=== PATIENT | male | born 1980 | race Caucasian/White ===

== ENCOUNTER 2017-02-02 19:34 | Emergency (ER) | payer OTHER ==
[2017-02-02 19:41] VITALS: BP 126/77
[2017-02-02 20:04] LABS: RAPID STREP SCREEN REAGENT QC YELLOW (YELLOW)
[2017-02-02] MEDS ORDERED: DEXAMETHASONE 10 MG/ML VIAL PO STA (20:20)
[2017-02-02] MEDS ORDERED: DEXAMETHASONE 10 MG/ML VIAL ONE (20:21)
[2017-02-02] MEDS ORDERED: CHERRY SYRUP 10 ML UDC PO ONE (20:22)
--- NOTE | 2017-02-02 20:23 | ED Physician Documentation ---
PD HPI URI - Stated complaint Stated Complaint: SORE THROAT/CHILD - Chief complaint Chief Complaint: Neuro - History obtained from History obtained from: Patient - History of Present Illness Timing - onset: Yesterday Timing duration: Days (2) Timing details: Gradual onset Pain level max: 6 Pain level now: 6 Associated symptoms: Fever (subjective), Chills, Sore throat, Dry cough (mild). No: Nasal congestion, Rhinorrhea, NVD Contributing factors: Sick contact (friend with strep throat 2 weeks ago) Improves by: Rest Worsened by: Other (swallowing) Similar symptoms before: Diagnosis (strep) Recently seen: Not recently seen Review of Systems Ears: denies: Ear pain GI: denies: Vomiting Skin: denies: Rash Musculoskeletal: denies: Neck pain, Back pain PD PAST MEDICAL HISTORY - Past Medical History Past Medical History: Yes Other Past Medical History: TORN ROTATOR CUFFS - Past Surgical History Past Surgical History: Yes Ortho: Other - Present Medications Home Medications: Ambulatory Orders Medication Instructions Recorded Confirmed Ibuprofen [Motrin] 800 mg PO Q8H PRN #30 tablet 02/02/17 - Allergies Allergies/Adverse Reactions: Allergies Allergy/AdvReac Type Severity Reaction Status Date / Time No Known Drug Allergies Allergy Verified 02/02/17 19:41 - Social History Does the pt smoke?: No Smoking Status: Never smoker Does the pt drink ETOH?: No Does the pt have substance abuse?: No - Immunizations Immunizations are current?: Yes - POLST Patient has POLST: No PD ED PE NORMAL - Vitals Vital signs reviewed: Yes - General General: Alert and oriented X 3, No acute distress, Well developed/nourished - HEENT HEENT: Ears normal, Moist mucous membranes, Other (Mild posterior oropharyngeal erythema without tonsillar exudates) - Neck Neck: Supple, no meningeal sign, No adenopathy - Cardiac Cardiac: RRR - Respiratory Respiratory: No respiratory distress, Clear bilaterally - Derm Derm: Warm and dry - Neuro Neuro: Alert and oriented X 3 - Psych Psych: Normal mood, Normal affect Results - Vitals Vitals: Oxygen O2 Source Room air - Labs Labs: Microbiology 02/02/17 19:46 Group A Strep Throat Culture - Preliminary Throat Laboratory Tests 02/02/17 19:46 Group A Strep Rapid Negative PD MEDICAL DECISION MAKING - ED course Complexity details: considered differential, d/w patient ED course: Patient is a 36-year-old male who presents to the emergency department with pharyngitis. Strep test is negative. Will hold antibiotics pending culture. Will utilize dexamethasone for the swelling. He is very well-appearing, nontoxic. No peritonsillar abscess. Normal phonation. No trismus. Patient counseled regarding signs and symptoms for which I believe and urgent re- evaluation would be necessary. Patient with good understanding of and agreement to plan and is comfortable going home at this time This document was made in part using voice recognition software. While efforts are made to proofread this document, sound alike and grammatical errors may occur. Departure - Departure Disposition: Home, Self Care Clinical Impression: Pharyngitis Qualifiers: Pharyngitis/tonsillitis etiology: unspecified etiology Qualified Code(s): J02.9 - Acute pharyngitis, unspecified Condition: Good Instructions: ED Pharyngitis Viral Follow-Up: your,doctor in 1 week if not better [Other] Prescriptions: Ibuprofen [Motrin] 800 mg PO Q8H PRN #30 tablet PRN Reason: PAIN &/OR FEVER Comments: Return if you worsen. This should improve over the next few days. If your culture is positive, we will call you. Discharge Date/Time: 02/02/17 20:26
== END 2017-02-02 20:26 | disposition home or self-care (01) ==
LOC: ED 19:34
DX: J02.9 Acute pharyngitis, unspecified (principal)
CPT/HCPCS: 87070; 87430; 99283; A9270

== ENCOUNTER 2017-09-13 15:47 | Emergency (ER) | payer OTHER ==
[2017-09-13 16:06] VITALS: BP 127/76
== END 2017-09-13 17:25 | disposition left against medical advice (07) ==
LOC: ED 15:47
DX: Z53.21 Procedure and treatment not carried out due to patient leaving prior to being seen by health care provider (principal)

== ENCOUNTER 2017-09-15 12:16 | Emergency (ER) | payer OTHER ==
[2017-09-15 12:26] VITALS: BP 140/85
[2017-09-15 12:48] LABS: BASOPHILS % (AUTO) 0.4 %; EOSINOPHILS # (AUTO) 0.1 10^3/uL (0.0-0.7); EOSINOPHILS % (AUTO) 1.2 %; HGB - HEMOGLOBIN 16.6 g/dL (14.0-18.0); LYMPHOCYTES # (AUTO) 2.3 10^3/uL (1.5-3.5); LYMPHOCYTES % (AUTO) 42.2 %; MEAN CORPUSCULAR HEMOGLOBIN 30.3 pg (27.0-31.0); MEAN CORPUSCULAR HGB CONC 34.9 g/dL (32.0-36.0); MEAN CORPUSCULAR VOLUME 86.8 fL (80.0-94.0); MEAN PLATELET VOLUME 7.2 fL (7.4-11.4); MONOCYTES # (AUTO) 0.4 10^3/uL (0.0-1.0); MONOCYTES % (AUTO) 6.5 %; NEUTROPHILS # (AUTO) 2.7 10^3/uL (1.5-6.6); NEUTROPHILS % (AUTO) 49.7 %; PLT - PLATELET COUNT 231 10^3/uL (130-450); RED BLOOD COUNT 5.48 10^6/uL (4.70-6.10); RED CELL DISTRIBUTION WIDTH 12.2 % (12.0-15.0); WHITE BLOOD COUNT 5.4 x10^3/uL (4.8-10.8)
[2017-09-15] MEDS ORDERED: IOPAMIDOL-300 100 ML VIAL ONE (12:51)
[2017-09-15 13:02] LABS: ALBUMIN 4.9 g/dL (3.2-5.5); ALBUMIN/GLOBULIN RATIO 1.7 (1.0-2.2); BILIRUBIN,TOTAL 0.7 mg/dL (0.2-1.0); CALCIUM 9.5 mg/dL (8.5-10.3); TOTAL PROTEIN 7.8 g/dL (6.7-8.2)
--- NOTE | 2017-09-15 13:56 | CT Report ---
EXAM: CT ABDOMEN AND PELVIS EXAM DATE: 09/15/2017 01:26 PM. CLINICAL HISTORY: Right abdominal pain/mass upper. COMPARISONS: None. TECHNIQUE: Routine helical CT imaging was performed through the abdomen and pelvis. IV contrast: 100M L OF ISOVUE 300. Enteric contrast: No. Reconstructions: Coronal and sagittal. In accordance with CT protocol optimization, one or more of the following dose reduction techniques w ere utilized for this exam: automated exposure control, adjustment of mA and/or KV based on patient s ize, or use of iterative reconstructive technique. FINDINGS: Lung Bases: Unremarkable. Liver: Normal. No masses. Gallbladder/Bile Ducts: Unremarkable. Spleen: Normal. Pancreas: Normal. Adrenal Glands: There is a 1.7 x 1 cm right adrenal nodule. There is a 1.8 x 1.2 cm left adrenal nodu le, too small to characterize. Kidneys: Normal. No masses or hydronephrosis. Peritoneal Cavity/Bowel: Normal. No free fluid, free air or adenopathy. No masses or acute inflammato ry process. The appendix is well visualized and normal. Pelvic Organs: Normal. The bladder and visualized pelvic organs are within normal limits. Vasculature: No aneurysms or other significant abnormality. Bones: No significant abnormality. Other: No encapsulated lipoma. No hernia or fluid collection is identified in the abdominal wall. IMPRESSION: 1. No localized acute inflammatory process to explain symptoms. 2. No fluid collection, mass or hernia is identified. 3. Very small adrenal nodules are nonspecific but most likely benign. [facility] Referring Provider Line: [phone] SITE ID: [id number]
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
[2017-09-17] MEDS ORDERED: IOPAMIDOL-300 100 ML VIAL IVP ONE (07:18)
== END 2017-09-15 15:11 | disposition home or self-care (01) ==
LOC: ED 12:16
DX: S30.1XXA Contusion of abdominal wall, initial encounter (principal); X50.3XXA Overexertion from repetitive movements, initial encounter; Y93.B3 Activity, free weights
CPT/HCPCS: 36415; 74177; 80053; 83690; 85025; 99283; Q9967

== ENCOUNTER 2020-01-11 11:47 | Emergency (ER) | payer OTHER ==
[2020-01-11 12:31] LABS: BASOPHILS % (AUTO) 0.6 %; EOSINOPHILS % (AUTO) 0.6 %; HGB - HEMOGLOBIN 16.6 g/dL (14.0-18.0); LYMPHOCYTES # (AUTO) 1.3 10^3/uL (1.5-3.5); MEAN CORPUSCULAR HEMOGLOBIN 30.7 pg (27.0-31.0); MEAN CORPUSCULAR HGB CONC 35.5 g/dL (32.0-36.0); MEAN CORPUSCULAR VOLUME 86.7 fL (80.0-94.0); MEAN PLATELET VOLUME 9.3 fL (7.4-11.4); MONOCYTES # (AUTO) 0.2 10^3/uL (0.0-1.0); MONOCYTES % (AUTO) 4.9 %; NEUTROPHILS # (AUTO) 3.2 10^3/uL (1.5-6.6); NEUTROPHILS % (AUTO) 66.7 %; PLT - PLATELET COUNT 222 10^3/uL (130-450); RED CELL DISTRIBUTION WIDTH 11.9 % (12.0-15.0); WHITE BLOOD COUNT 4.9 x10^3/uL (4.8-10.8)
--- NOTE | 2020-01-11 12:39 | XRAY Report ---
Reason: Chest Pain Procedure Date: 01/11/2020 Accession Number: [id number] / [id number] Procedure: XR - Chest 1 View X-Ray CPT Code: 39427 Final Report FULL RESULT: EXAM: CHEST RADIOGRAPHY EXAM DATE: 01/11/2020 12:26 PM. CLINICAL HISTORY: Chest pain. History of GERD. COMPARISON: None. TECHNIQUE: 1 view. FINDINGS: Lungs/Pleura: No focal opacities are evident. No pleural effusion or pneumothorax. Mediastinum: Normal cardiomediastinal contour. Other: The bones are unremarkable. IMPRESSION: Normal single view chest. [facility]
[2020-01-11 12:45] LABS: ALBUMIN 4.7 g/dL (3.2-5.5); ALBUMIN/GLOBULIN RATIO 1.3 (1.0-2.2); BILIRUBIN,TOTAL 0.7 mg/dL (0.2-1.0); CALCIUM 9.5 mg/dL (8.5-10.3); CREATININE 1.1 mg/dL (0.6-1.2); TOTAL PROTEIN 8.3 g/dL (6.7-8.2)
--- NOTE | 2020-01-11 13:41 | ED Physician Documentation ---
PD HPI CHEST PAIN - Stated complaint Stated Complaint: CP/TIGHTNESS - Chief complaint Chief Complaint: Cardiac - History obtained from History obtained from: Patient - History of Present Illness Timing - onset: Last night Timing - onset during: Rest Timing - duration: Days (1) Timing - details: Gradual onset Pain level max: 8 Pain level now: 0 Quality: Pressure, Other (Burning) Location: Other (States across his entire chest) Radiation: No: Jaw, Neck, Back, Abdominal, Left upper extremity, Right upper extremity Improved by: Nothing, Other (Nothing) Worsened by: Other (Nothing). No: Exertion, Inspiration, Eating, Movement, Palpation, Position Recently seen: Not recently seen - Additional information Additional information: Patient states that he took an aspirin last night as well as a new digestive enzyme. Since that time has had a burning sensation across his chest. Nothing makes it better or worse. He felt nauseated and flushed at the same time. Currently is asymptomatic. No cardiac history. Does not smoke. No alcohol. No medications at home. No cardiac history in the family. Review of Systems Ten Systems: 10 systems reviewed and negative Constitutional: denies: Fever, Chills Cardiac: denies: Chest pain / pressure Respiratory: denies: Cough GI: denies: Vomiting, Diarrhea Skin: denies: Rash Musculoskeletal: denies: Neck pain, Back pain Neurologic: denies: Headache PD PAST MEDICAL HISTORY - Past Medical History Cardiovascular: None Respiratory: Sleep apnea, CPAP use Neuro: Headaches Endocrine/Autoimmune: None GI: GERD : None HEENT: None Psych: Anxiety Musculoskeletal: None Derm: None - Past Surgical History Past Surgical History: Yes Ortho: Other - Present Medications Home Medications: Ambulatory Orders Medication Instructions Recorded Confirmed No Known Home Medications 09/13/17 09/13/17 - Allergies Allergies/Adverse Reactions: Allergies Allergy/AdvReac Type Severity Reaction Status Date / Time No Known Drug Allergies Allergy Verified 01/11/20 12:03 - Social History Does the pt smoke?: No Smoking Status: Never smoker Does the pt drink ETOH?: No Does the pt have substance abuse?: No - Immunizations Immunizations are current?: Yes - POLST Patient has POLST: No PD ED PE NORMAL - Vitals Vital signs reviewed: Yes - General General: Alert and oriented X 3, No acute distress, Well developed/nourished - HEENT HEENT: Moist mucous membranes - Neck Neck: Supple, no meningeal sign - Cardiac Cardiac: RRR, Strong equal pulses - Respiratory Respiratory: No respiratory distress, Clear bilaterally - Abdomen Abdomen: Soft, Non tender, Non distended - Derm Derm: Warm and dry - Extremities Extremities: No edema, No calf tenderness / cord - Neuro Neuro: Alert and oriented X 3 - Psych Psych: Normal mood, Normal affect Results - Vitals Vitals: Vital Signs - 24 hr 01/11/20 01/11/20 11:55 12:16 Temperature 36.9 C Heart Rate 72 68 Respiratory 20 16 Rate Blood Pressure 139/80 H 129/81 H O2 Saturation 100 99 Oxygen O2 Source Room air - EKG (time done) 1155 Rate: Rate (enter#) (78) Rhythm: NSR [place]: Normal, Anterior hemiblock (Left anterior fascicular block) Intervals: RBBB (Incomplete) QRS: Normal Ischemia: Normal ST segments - Labs Labs: Laboratory Tests 01/11/20 01/11/20 01/11/20 12:25 12:25 12:25 WBC 4.9 RBC 5.40 Hgb 16.6 Hct 46.8 MCV 86.7 MCH 30.7 MCHC 35.5 RDW 11.9 L Plt Count 222 MPV 9.3 Neut # (Auto) 3.2 Lymph # (Auto) 1.3 L [place] # (Auto) 0.2 Eos # (Auto) 0.0 Baso # (Auto) 0.0 Absolute Nucleated RBC 0.00 Nucleated RBC % 0.0 Sodium 137 Potassium 4.1 Chloride 104 Carbon Dioxide 23 Anion Gap 10.0 BUN 17 Creatinine 1.1 Estimated GFR (MDRD) 74 L Glucose 101 H Calcium 9.5 Total Bilirubin 0.7 AST 23 ALT 33 Alkaline Phosphatase 62 Troponin I High Sens < 2.3 L Total Protein 8.3 H Albumin 4.7 Globulin 3.6 Albumin/Globulin Ratio 1.3 Lipase 29 PD MEDICAL DECISION MAKING - ED course Complexity details: reviewed results, re-evaluated patient, considered differential (No ST elevation [place], no aortic dissection, no PE, no tension pneumothorax, no aortic aneurysm), d/w patient ED course: No acute findings on testing. Asymptomatic currently. No recent surgery. No recent travel. No calf tenderness or swelling. We will continue supportive care and have him follow-up with his doctor for cardiac stress test. Patient counseled regarding signs and symptoms for which I believe and urgent re- evaluation would be necessary. Patient with good understanding of and agreement to plan and is comfortable going home at this time This document was made in part using voice recognition software. While efforts are made to proofread this document, sound alike and grammatical errors may occur. Departure - Departure Disposition: Home, Self Care Clinical Impression: Chest pain Qualifiers: Chest pain type: unspecified Qualified Code(s): R07.9 - Chest pain, unspecified Condition: Good Instructions: ED Chest Pain NonCardiac Follow-Up: RUBIA JARAMILLO MD [Primary Care Provider] - Within 1 week Comments: Your testing is normal today. Follow-up with your doctor within the next week to schedule a cardiac stress test. Return if you worsen.
[2020-01-11 14:25] VITALS: BP 112/71
== END 2020-01-11 14:25 | disposition home or self-care (01) ==
LOC: ED 11:47
DX: R07.9 Chest pain, unspecified (principal)
CPT/HCPCS: 36415; 71045; 80053; 83690; 84484; 85025; 93005; 99284